=== PATIENT | male | born 1985 ===

== ENCOUNTER 2017-04-29 21:27 | Emergency (ER) | payer MEDICAID ==
[2017-04-29 21:42] VITALS: BP 136/68; RESP 18; TEMP 99.4; O2SAT 99
[2017-04-29] MEDS ORDERED: Lidocaine 1% Inj (20ml) IJ ONE (21:45)
[2017-04-29] MEDS ORDERED: Lidocaine 1% Inj (20ml) ONE (21:50)
--- NOTE | 2017-04-29 21:50 | ED PDOC ---
HPI: Skin/Bite Injury Time Seen by Provider: 04/29/17 21:41 Chief Complaint (Nursing): Abnormal Skin Integrity Chief Complaint (Provider): Abnormal Skin Integrity History Per: Patient History/Exam Limitations: no limitations Onset/Duration Of Symptoms: Days (x2) Current Symptoms Are (Timing): Still Present Additional Complaint(s): Huber De La Cruz is a 31 year old male presenting to the ED for an evaluation of an abscess developed under his right armpit occurring 2 days prior to arrival. The patient states he has associated pain, swelling, and redness on his right armpit and also developed a small amount of similar symptoms in his left armpit. PMD: Provider TBD Past Medical History Reviewed: Historical Data, Nursing Documentation, Vital Signs Vital Signs: Last Vital Signs Temp 99.4 F 04/29/17 21:39 Pulse 87 04/29/17 22:26 Resp 18 04/29/17 21:39 BP 136/68 04/29/17 21:39 Pulse Ox 99 04/29/17 21:52 - Medical History PMH: Migraine - Family History Family History: States: Unknown Family Hx - Social History Current smoker - smoking cessation education provided: Yes Alcohol: None Drugs: Cannabis - Home Medications Home Medications: Ambulatory Orders Medication Instructions Recorded Dicyclomine [Bentyl] 20 mg PO TID #30 tab 06/03/16 Cephalexin [cephalexin] 500 mg PO Q6 #28 cap 04/29/17 Sulfamethoxazole/Trimethoprim 2 tab PO BID #28 tab 04/29/17 [Bactrim DS 800 mg-160 mg] oxyCODONE/Acetaminophen [Percocet 1 ea PO Q8 PRN #10 tab 04/29/17 5/325 mg Tab] - Allergies Allergies/Adverse Reactions: Allergies Allergy/AdvReac Type Severity Reaction Status Date / Time No Known Allergies Allergy Verified 06/03/16 14:17 Review of Systems ROS Statement: Except As Marked, All Systems Reviewed And Found Negative Skin: Positive for: Other (abscess in bilateral armpits with pain, swelling, and redness ) Physical Exam - Reviewed Nursing Documentation Reviewed: Yes Vital Signs Reviewed: Yes - Physical Exam Appears: Positive for: No Acute Distress Head Exam: Positive for: ATRAUMATIC, NORMOCEPHALIC Extremity: Positive for: Other (right axillary: large erythematous tender fluctuant mass (baseball size); left axillary: 2 cm erythematous tender indurated nonfluctuant mass) Neurologic/Psych: Positive for: Alert, Oriented - ECG O2 Sat by Pulse Oximetry: 99 (RA) Pulse Ox Interpretation: Normal - Progress ED Course And Treament: Pt. searched on [place] [employer] aware which indicates with no narcotic Rx within the past 2 years. Medical Decision Making Medical Decision Making: Time: 21:41 Impression: Abnormal Skin Integrity Plan: * Lidocaine 1% (20 ml) 3 ml IJ * Reevaluation Scribe Attestation: Documented by Dina Velasco, acting as a scribe for Thee Bowie PA-C. Provider Scribe Attestation: All medical record entries made by the Scribe were at my direction and personally dictated by me. I have reviewed the chart and agree that the record accurately reflects my personal performance of the history, physical exam, medical decision making, and the department course for this patient. I have also personally directed, reviewed, and agree with the discharge instructions and disposition. Disposition - Clinical Impression Clinical Impression: Abscess - Patient ED Disposition Is Patient to be Admitted: No - Disposition Referrals: [facility] [Outside] Disposition: Routine/Home Disposition Time: 22:10 Condition: IMPROVED Additional Instructions: Return to ED in 2 days for wound check. Prescriptions: Cephalexin [cephalexin] 500 mg PO Q6 #28 cap oxyCODONE/Acetaminophen [Percocet 5/325 mg Tab] 1 ea PO Q8 PRN #10 tab PRN Reason: Pain Sulfamethoxazole/Trimethoprim [Bactrim DS 800 mg-160 mg] 2 tab PO BID #28 tab Instructions: Abscess (ED) Forms: [employer] (Mauritanian) Print Language: CANADIAN Procedures - Time-Out Type of Procedure: I&D Site of Procedure: R axilla Correct Patient (with visual ID + MR# on ID Band): Yes Correct Procedure: Yes Correct Site Marked: Yes PA/Tech: Jamir - Incision and Drainage Blade Size: 11 I & D Procedure: betadine prep (Lidocain was also instilled into R axillary mass ), sterile drapes applied, sterile dressing applied, gauze wick placed Progress: L axilla was aspirated of no purulent material
[2017-04-29 22:27] VITALS: PULSE 87
== END 2017-04-29 22:26 | disposition home or self-care (01) ==
LOC: H.ER 21:27
DX: L02.411 Cutaneous abscess of right axilla (principal)

== ENCOUNTER 2017-05-01 15:07 | Emergency (ER) | payer MEDICAID ==
[2017-05-01 15:25] VITALS: BP 119/79; PULSE 98; RESP 16; TEMP 97.8; O2SAT 100
[2017-05-01] MEDS ORDERED: Oxycodone/Acetaminophen 5/325 mg Tab PO STA (16:19)
[2017-05-01] MEDS ORDERED: Oxycodone/Acetaminophen 5/325 mg Tab ONE (16:22)
--- NOTE | 2017-05-01 16:23 | ED PDOC ---
HPI: Wound Care - HPI Time Seen by Provider: 05/01/17 16:00 Chief Complaint (Nursing): Wound Check Chief Complaint (Provider): WOund check History Per: Patient History Of Present Illness: Huber De La Cruz is a 31 year old male presenting to the ED for an evaluation of an abscess developed under his right armpit occurring 4 days prior to arrival. Exam Limitations: no limitations Onset/Duration Of Symptoms: Days Current Symptoms Are (Timing): Still Present Additional Complaint(s): 31y/o male, presents to the Ed for re-evaluation after having an abscess drained at this facility two days ago. Patient states he was given antibiotics which he has taken but he still has pain to his right axilla. Patient denies any active draining, fever or chills. He offers no additional medical complaints. Past Medical History Reviewed: Historical Data, Nursing Documentation, Vital Signs Vital Signs: Last Vital Signs Temp 97.8 F 05/01/17 15:23 Pulse 98 H 05/01/17 15:23 Resp 16 05/01/17 15:23 BP 119/79 05/01/17 15:23 Pulse Ox 100 05/01/17 15:23 - Medical History PMH: Migraine - Surgical History Surgical History: No Surg Hx - Family History Family History: States: No Known Family Hx, Unknown Family Hx - Social History Current smoker - smoking cessation education provided: No - Home Medications Home Medications: Ambulatory Orders Medication Instructions Recorded Dicyclomine [Bentyl] 20 mg PO TID #30 tab 06/03/16 Cephalexin [cephalexin] 500 mg PO Q6 #28 cap 04/29/17 Sulfamethoxazole/Trimethoprim 2 tab PO BID #28 tab 04/29/17 [Bactrim DS 800 mg-160 mg] oxyCODONE/Acetaminophen [Percocet 1 ea PO Q8 PRN #10 tab 04/29/17 5/325 mg Tab] Tramadol HCl [Ultram] 50 mg PO Q6 #15 tab 05/01/17 - Allergies Allergies/Adverse Reactions: Allergies Allergy/AdvReac Type Severity Reaction Status Date / Time No Known Allergies Allergy Verified 06/03/16 14:17 Review of Systems Constitutional: Negative for: Fever, Chills Musculoskeletal: Positive for: Other (pain to right axilla s/p I&D performed 2 days ago) Physical Exam - Reviewed Nursing Documentation Reviewed: Yes Vital Signs Reviewed: Yes - Physical Exam Appears: Positive for: Non-toxic, No Acute Distress Head Exam: Positive for: ATRAUMATIC, NORMAL INSPECTION, NORMOCEPHALIC Skin: Positive for: Warm, Dry Eye Exam: Positive for: Normal appearance Neck: Positive for: Supple Respiratory: Negative for: Respiratory Distress Extremity: Positive for: Other (right axilla with drained abscess, packing still in place. Wound open, no active drainage. +minimal surrounding erythema). Negative for: Deformity, Swelling Neurologic/Psych: Positive for: Alert, Oriented. Negative for: Motor/Sensory Deficits - ECG O2 Sat by Pulse Oximetry: 100 (RA) Pulse Ox Interpretation: Normal Medical Decision Making Medical Decision Making: Time: 1605 Impression: Wound care Plan: -- Packing removed from right axilla, wound cleaned and new dressings applied. Patient c/o pain so Percocet 1tab PO given in ED. Patient to be discharged home with Ultram for acute pain. Patient informed to complete prescribed antibiotics course. Scribe Attestation: Documented by Madelin Murray acting as a scribe for PASTOR Cool Provider Attestation: All medical record entries made by the Scribe were at my direction and personally dictated by me. I have reviewed the chart and agree that the record accurately reflects my personal performance of the history, physical exam, medical decision making, and the department course for this patient. I have also personally directed, reviewed, and agree with the discharge instructions and disposition. Disposition - Clinical Impression Clinical Impression: Encounter for wound re-check, Abscess Counseled Patient/Family Regarding: Rx Given - Disposition Disposition: Routine/Home Disposition Time: 16:05 Condition: STABLE Prescriptions: Tramadol HCl [Ultram] 50 mg PO Q6 #15 tab Instructions: Abscess (ED) Forms: [employer] (Congolese)
== END 2017-05-01 16:25 | disposition home or self-care (01) ==
LOC: H.ER 15:07
DX: Z48.00 Encounter for change or removal of nonsurgical wound dressing (principal)

== ENCOUNTER 2017-07-07 09:59 | Emergency (ER) | payer BC, MEDICAID ==
[2017-07-07 10:23] VITALS: BP 124/64; PULSE 70; RESP 18; TEMP 97.7; O2SAT 99
--- NOTE | 2017-07-07 10:33 | ED PDOC ---
HPI: Headache Time Seen by Provider: 07/07/17 10:03 Chief Complaint (Nursing): Headache Chief Complaint (Provider): Headache History Per: Patient History/Exam Limitations: no limitations Onset/Duration Of Symptoms: Days (x2) Current Symptoms Are (Timing): Still Present Associated Symptoms: Nausea Additional Complaint(s): Huber is a 31 y/o male presenting to the ED for evaluation of head injury sustained yesterday. States he was hit on the head with a garbage bag yesterday while at work and subsequently struck his head against a truck. No loss of consciousness but was dazed with transient blurry vision. Now patient complaining of persistent headache and nausea since yesterday. No weakness or paresthesias. PMD: Dr. Rodo Ruiz Past Medical History Reviewed: Historical Data, Nursing Documentation, Vital Signs Vital Signs: Last Vital Signs Temp 97.7 F 07/07/17 10:19 Pulse 70 07/07/17 10:19 Resp 18 07/07/17 10:19 BP 124/64 07/07/17 10:19 Pulse Ox 99 07/07/17 10:19 - Medical History PMH: Asthma, Migraine - Surgical History Other surgeries: Left knee surgery - Family History Family History: States: Unknown Family Hx - Social History Current smoker - smoking cessation education provided: Yes Alcohol: < 2 Drinks/Day Drugs: Cannabis - Home Medications Home Medications: Ambulatory Orders Medication Instructions Recorded Dicyclomine [Bentyl] 20 mg PO TID #30 tab 06/03/16 Cephalexin [cephalexin] 500 mg PO Q6 #28 cap 04/29/17 Sulfamethoxazole/Trimethoprim 2 tab PO BID #28 tab 04/29/17 [Bactrim DS 800 mg-160 mg] oxyCODONE/Acetaminophen [Percocet 1 ea PO Q8 PRN #10 tab 04/29/17 5/325 mg Tab] Tramadol HCl [Ultram] 50 mg PO Q6 #15 tab 05/01/17 Naproxen [Naprosyn] 500 mg PO Q12H #20 tab 07/07/17 - Allergies Allergies/Adverse Reactions: Allergies Allergy/AdvReac Type Severity Reaction Status Date / Time No Known Allergies Allergy Verified 06/03/16 14:17 Review of Systems ROS Statement: Except As Marked, All Systems Reviewed And Found Negative Constitutional: Negative for: Fever, Chills Gastrointestinal: Positive for: Nausea Neurological: Positive for: Headache. Negative for: Weakness, Numbness (or paresthesia), Other (LOC) Physical Exam - Reviewed Nursing Documentation Reviewed: Yes Vital Signs Reviewed: Yes - Physical Exam Appears: Positive for: Non-toxic, No Acute Distress Head Exam: Positive for: ATRAUMATIC, NORMAL INSPECTION, NORMOCEPHALIC Skin: Positive for: Normal Color, Warm, Dry Eye Exam: Positive for: EOMI, Normal appearance, PERRL Neck: Positive for: Normal, Painless ROM Cardiovascular/Chest: Positive for: Regular Rate, Rhythm. Negative for: Murmur Respiratory: Positive for: Normal Breath Sounds. Negative for: Accessory Muscle Use, Respiratory Distress Gastrointestinal/Abdominal: Positive for: Normal Exam, Soft. Negative for: Tenderness Back: Positive for: Normal Inspection. Negative for: Vertebral Tenderness Extremity: Positive for: Normal ROM, Capillary Refill (< 2 sec). Negative for: Pedal Edema, Deformity Neurologic/Psych: Positive for: Alert, Oriented (x3). Negative for: Motor/ Sensory Deficits - ECG O2 Sat by Pulse Oximetry: 99 (RA) Pulse Ox Interpretation: Normal Medical Decision Making Medical Decision Making: Time: 10:23 Initial Plan: --CT Head w/o contrast Scribe Attestation: Documented by Leonor Dow, acting as a scribe for Blane Green MD Provider Scribe Attestation: All medical record entries made by the Scribe were at my direction and personally dictated by me. I have reviewed the chart and agree that the record accurately reflects my personal performance of the history, physical exam, medical decision making, and the department course for this patient. I have also personally directed, reviewed, and agree with the discharge instructions and disposition. Disposition - Clinical Impression Clinical Impression: Head injury - Patient ED Disposition Is Patient to be Admitted: No Counseled Patient/Family Regarding: Studies Performed, Diagnosis, Need For Followup, Rx Given - Disposition Referrals: Jj Corley MD [Staff Provider] - Disposition: Routine/Home Disposition Time: 11:16 Condition: FAIR Prescriptions: Naproxen [Naprosyn] 500 mg PO Q12H #20 tab Instructions: Head Injury (ED), Concussion (ED) Forms: [employer] (Faroese)
--- NOTE | 2017-07-07 11:26 | CT ---
PROCEDURE: CT HEAD WITHOUT CONTRAST. HISTORY: r/o bleed COMPARISON: Comparison is made to the previous exam dated 05/21/2010 TECHNIQUE: Axial computed tomography images were obtained through the head/brain without intravenous contrast. Radiation dose: Total exam DLP = 773.24 mGy-cm. This CT exam was performed using one or more of the following dose reduction techniques: Automated exposure control, adjustment of the mA and/or kV according to patient size, and/or use of iterative reconstruction technique. FINDINGS: HEMORRHAGE: No intracranial hemorrhage. BRAIN: No mass effect or edema. No atrophy or chronic microvascular ischemic changes. VENTRICLES: Unremarkable. No hydrocephalus. CALVARIUM: Unremarkable. PARANASAL SINUSES: Unremarkable as visualized. No significant inflammatory changes. MASTOID AIR CELLS: Unremarkable as visualized. No inflammatory changes. OTHER FINDINGS: None. IMPRESSION: Normal CT of the Head.
== END 2017-07-07 11:34 | disposition home or self-care (01) ==
LOC: H.ER 09:59
DX: S09.90XA Unspecified injury of head, initial encounter (principal); W22.8XXA Striking against or struck by other objects, initial encounter; Y99.0 Civilian activity done for income or pay; J45.909 Unspecified asthma, uncomplicated